=== PATIENT | female | born 1980 | race Caucasian/White ===

== ENCOUNTER 2016-12-17 16:47 | Emergency (ER) | payer OTHER ==
[~2016-12-17] VITALS: Ht 170.2 cm; Wt 76.4 kg
[~2016-12-17 16:47] MED LIST: ABRE10CR TOP; ADDE10XR PO; ADDE20XR PO; ALBU8I INH; ATRO17AE INH; BUSP10 PO; CLIN1KIT TOP; CLON1 PO; DICY1TAB26 PO; HYDR-3533 PO; PRIL40CA PO; REGL10TA5 PO; SERT-129 PO; SPIR50TA21 PO; VIST50CA PO; WELL150T PO; ZOFR4TAB3 SL; [UNRECOGNIZED DRUG - OTHER] TOP
[2016-12-17 16:49] VITALS: BP 140/70; PULSE 48; RESP 20; TEMP 97.6; O2SAT 100
== END 2016-12-17 19:56 | disposition left against medical advice (07) ==
LOC: NED 16:47
DX: T81.9XXA Unspecified complication of procedure, initial encounter (principal)
CPT/HCPCS: 99281

== ENCOUNTER 2017-08-12 14:22 | Emergency (ER) | payer OTHER, MEDICAID ==
[~2017-08-12] VITALS: Ht 170.2 cm; Wt 78.4 kg
[2017-08-12 14:23] VITALS: BP 110/61; PULSE 79; RESP 18; TEMP 98.5; O2SAT 99
[2017-08-12] MEDS ORDERED: KETOROLAC TROMETHAMINE 60 MG/2 ML (IM) VIAL IM ONE (15:45)
[2017-08-12] MEDS ORDERED: ORPHENADRINE INJ 60 MG/2 ML AMP IM ONE (15:45)
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
[2017-08-12] MEDS ORDERED: ROBA500T PO (16:34)
[2017-08-12 16:40] VITALS: RESP 16
== END 2017-08-12 16:57 | disposition home or self-care (01) ==
LOC: NEPK 14:22
DX: S29.012A Strain of muscle and tendon of back wall of thorax, initial encounter (principal); F90.9 Attention-deficit hyperactivity disorder, unspecified type; F31.9 Bipolar disorder, unspecified; J44.9 Chronic obstructive pulmonary disease, unspecified; F42.9 Obsessive-compulsive disorder, unspecified; F43.10 Post-traumatic stress disorder, unspecified; R56.9 Unspecified convulsions; F17.210 Nicotine dependence, cigarettes, uncomplicated; V43.52XA Car driver injured in collision with other type car in traffic accident, initial encounter
CPT/HCPCS: 96372; 99284; J1885; J2360

== ENCOUNTER 2017-08-24 08:18 | Emergency (ER) | payer OTHER, MEDICAID ==
[~2017-08-24] VITALS: Ht 170.2 cm; Wt 75.0 kg
[~2017-08-24 08:18] MED LIST changes: -ABRE10CR TOP; -ADDE10XR PO; -ADDE20XR PO; -ALBU8I INH; -ATRO17AE INH; -BUSP10 PO; -CLIN1KIT TOP; -CLON1 PO; -DICY1TAB26 PO; -HYDR-3533 PO; -PRIL40CA PO; -REGL10TA5 PO; +ROBA500T PO; -SERT-129 PO; -SPIR50TA21 PO; -VIST50CA PO; -WELL150T PO; -ZOFR4TAB3 SL; -[UNRECOGNIZED DRUG - OTHER] TOP
[2017-08-24 08:21] VITALS: BP 152/63; PULSE 76; RESP 18; TEMP 97.7; O2SAT 99
[2017-08-24] MEDS ORDERED: CLON1 PO (08:56)
[2017-08-24] MEDS ORDERED: ZOLO25TA PO (08:56)
[2017-08-24] MEDS ORDERED: ADDE20 PO (08:56)
[2017-08-24] MEDS ORDERED: ONDANSETRON HCL 4 MG/2 ML VIAL IV PUSH ONE (09:15)
[2017-08-24] MEDS ORDERED: KETOROLAC TROMETHAMINE 30 MG/ML (IVP) VIAL IV PUSH ONE (09:15)
[2017-08-24 10:01] LABS: AUTOMATED NEUTROPHIL # 6.6 TH/MM3 (1.8-7.7); BASOPHIL % 0.4 % (0.0-2.0); EOSINOPHIL # 0.3 TH/MM3 (0-0.4); EOSINOPHIL % 3.2 % (0.0-4.0); HEMATOCRIT 42.2 % (35.0-46.0); HEMO FLAGS DIFF FINAL; MEAN CORPUSCULAR HGB CONC 34.4 % (32.0-36.0); MONO % 4.8 % (0.0-8.0); NEUT % 70.6 % (16.0-70.0); PLATELET COUNT 361 TH/MM3 (150-450); RED BLOOD COUNT 4.39 MIL/MM3 (4.00-5.30); RED CELL DISTRIBUTION WIDTH 13.9 % (11.6-17.2); WHITE BLOOD COUNT 9.3 TH/MM3 (4.0-11.0)
[2017-08-24 10:12] LABS: BACTERIA, URINE OCC /hpf; BLOOD, URINE MOD (NEG); COMMENT (UR) CULT NOT INDICATED; CULTURE IF INDICATED CULT NOT INDICATED; GLUCOSE,URINE NEG (NEG); HYALINE CAST, URINE 1 /lpf (RARE); KETONE, URINE NEG (NEG); MUCUS URINE MANY /lpf (OCC); NITRITE,URINE NEG (NEG); SQUAMOUS EPITHELIAL CELL URINE 10 /hpf (0-5); URINE COLOR YELLOW (YELLW/STRAW)
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
[2017-08-24 10:20] LABS: ANION GAP 9 MEQ/L (5-15); AST (GOT) 15 U/L (15-37); BICARBONATE 21.5 MEQ/L (21.0-32.0); BLOOD UREA NITROGEN 18 MG/DL (7-18); CHLORIDE 109 MEQ/L (98-107); GLOMERULAR FILTRATION RATE 73 ML/MIN (>89); POTASSIUM 3.4 MEQ/L (3.5-5.1); SODIUM (NA) 139 MEQ/L (136-145)
[2017-08-24 10:24] LABS: ALKALINE PHOSPHATASE 64 U/L (45-117); ALT (GPT) 29 U/L (10-53); TOTAL BILIRUBIN ADULT 0.6 MG/DL (0.2-1.0)
[2017-08-24 10:30] VITALS: BP 110/64; PULSE 54; RESP 16; O2SAT 99
[2017-08-24] MEDS ORDERED: PANTOPRAZOLE SODIUM 40 MG VIAL IV PUSH ONE (10:45)
[2017-08-24] MEDS ORDERED: SODIUM CHLOR 0.9% 1000 ML INJ 1,000 ML IV ONE (10:45)
[2017-08-24] MEDS ORDERED: TYLE325T PO (11:42)
== END 2017-08-24 13:03 | disposition home or self-care (01) ==
LOC: NEPC 08:18
DX: R10.13 Epigastric pain (principal); F17.210 Nicotine dependence, cigarettes, uncomplicated
CPT/HCPCS: 80053; 81001; 83690; 84703; 85025; 96374; 96375; 99285; C9113; J1885; J2405; J7030

== ENCOUNTER 2018-02-11 15:36 | Emergency (ER) | payer OTHER ==
[~2018-02-11] VITALS: Ht 170.2 cm; Wt 78.8 kg
[~2018-02-11 15:36] MED LIST changes: +ADDE20 PO; +CLON1 PO; +TYLE325T PO; +ZOLO25TA PO
[2018-02-11 15:50] VITALS: BP 109/60; PULSE 73; RESP 16; TEMP 97.9; O2SAT 99
[2018-02-11] MEDS ORDERED: LIPI40TA PO (17:22)
[2018-02-11] MEDS ORDERED: HYDR50CA PO (17:22)
[2018-02-11] MEDS ORDERED: ZOLO100T PO (17:22)
[2018-02-11] MEDS ORDERED: VENTAER INH (17:22)
[2018-02-11] MEDS ORDERED: TOPI100 PO (17:22)
[2018-02-11] MEDS ORDERED: FLUP1TAB PO ×2 (17:22)
[2018-02-11] MEDS ORDERED: OXCA150T PO (17:22)
[2018-02-11] MEDS ORDERED: DOXY1CAP74 PO (17:22)
[2018-02-11] MEDS ORDERED: BUSP10TA PO (17:22)
[2018-02-11] MEDS ORDERED: LEXA5TAB PO (17:22)
--- NOTE | 2018-02-11 18:21 | RADRPT ---
EXAM DATE: 02/11/2018 6:05 PM EDT AGE/SEX: 37 years / Female INDICATIONS: Left elbow pain on posterior side of elbow after falling on ice. CLINICAL DATA: This is the patient's initial encounter. Patient reports that signs and symptoms have been present for 1 day and indicates a pain score of 8/10. MEDICAL/SURGICAL HISTORY: None. None. COMPARISON: No prior [facility] exams available for comparison. FINDINGS: Four views of the left elbow demonstrate no fracture or dislocation. No joint effusion is visualized. No soft tissue abnormality or radiopaque foreign body is present. CONCLUSION: No acute left elbow abnormality is identified. Electronically signed by: Juan Lanier MD 02/11/2018 6:19 PM EDT
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
[2018-02-11] MEDS ORDERED: ACETAMINOPHEN 500 MG CPLT PO ONE (19:00)
[2018-02-11] MEDS ORDERED: TYLE325T PO (19:08)
== END 2018-02-11 19:14 | disposition home or self-care (01) ==
LOC: PHEFT 15:36
DX: S09.90XA Unspecified injury of head, initial encounter (principal); S50.02XA Contusion of left elbow, initial encounter; W01.0XXA Fall on same level from slipping, tripping and stumbling without subsequent striking against object, initial encounter; F31.9 Bipolar disorder, unspecified; F42.9 Obsessive-compulsive disorder, unspecified; F43.10 Post-traumatic stress disorder, unspecified; J44.9 Chronic obstructive pulmonary disease, unspecified; M79.7 Fibromyalgia; F17.210 Nicotine dependence, cigarettes, uncomplicated
CPT/HCPCS: 70450; 73080

== ENCOUNTER 2018-02-24 19:06 | Emergency (ER) | payer OTHER ==
[~2018-02-24] VITALS: Ht 170.2 cm; Wt 77.0 kg
[~2018-02-24 19:06] MED LIST changes: +BUSP10TA PO; +DOXY1CAP74 PO; +FLUP1TAB PO; +HYDR50CA PO; +LEXA5TAB PO; +LIPI40TA PO; +OXCA150T PO; -ROBA500T PO; +TOPI100 PO; +VENTAER INH; +ZOLO100T PO
[2018-02-24 19:10] VITALS: BP 100/56; PULSE 84; RESP 16; TEMP 98.3; O2SAT 99
[2018-02-24] MEDS ORDERED: TRIL150T PO (19:50)
[2018-02-24] MEDS ORDERED: NABU1TAB37 PO (19:50)
[2018-02-24] MEDS ORDERED: BUPR150CR PO (19:50)
[2018-02-24] MEDS ORDERED: ELUX1TAB PO (19:50)
[2018-02-24] MEDS ORDERED: KETO10 PO (19:59)
--- NOTE | 2018-02-24 19:59 | PD ---
HPI Chief Complaint: Oral / Dental Pain or Problem Time Seen by Provider: 19:55 Travel History International Travel<30 days: No Contact w/Intl Traveler<30days: No Traveled to known affect area: No History of Present Illness HPI 37-year-old with dental pain 2 days. She reports she has a crown that dislodged from her tooth and she now has pain. She reports her dentist put her on antibiotics several days ago for this she has continued pain. She is requesting pain medication. She denies fever chills. No difficulty swallowing. No swelling to the floor the mouth. She reports compliance with antibiotics. PFSH Past Medical History Hx Anticoagulant Therapy: No ADD: Yes ADHD: Yes Bipolar Disorder: Yes Anxiety: Yes Depression: Yes Cancer: No Cardiovascular Problems: No COPD: Yes Cerebrovascular Accident: No Diabetes: No Diminished Hearing: No Endocrine: No Fibromyalgia: Yes Gastrointestinal Disorders: No Genitourinary: No Hepatitis: No Hiatal Hernia: No Hypertension: No Immune Disorder: No Implanted Vascular Access Dvce: Yes Musculoskeletal: Yes Neurologic: No Psychiatric: Yes (OCD, PTSD (DRUG DEALING/LOST CHILDREN), social anxiety disorder, panic att.) Reproductive: No Respiratory: Yes (copd, sleep apena) Immunizations Current: Yes Seizures: Yes Thyroid Disease: No PNEUMOCCOCAL Vaccine (Year): 2 ?: Not : 3 Para: 3 Tubal Ligation: Yes Past Surgical History Body Medical Devices: HARDWARE LEFT LEG Ear Surgery: No Gynecologic Surgery: Yes (TUBAL \LIG.) Neurologic Surgery: Yes (LUMBAR SX) Oral Surgery: Yes (WISDOM TEETH EXTRACTED, T & A) Pacemaker: No Thoracic Surgery: Yes (BREAST AUG.) Tonsillectomy: Yes Other Surgery: Yes (BREAST AUGMENTATION) Social History Alcohol Use: No Tobacco Use: Yes (vape) Substance Use: No Allergies-Medications (Allergen,Severity, Reaction): Coded Allergies: codeine (Unverified Allergy, Severe, 02/24/18) gabapentin (Unverified Allergy, Unknown, 02/24/18) haloperidol (Unverified Allergy, Unknown, 02/24/18) promethazine (Unverified Allergy, Unknown, 02/24/18) Uncoded Allergies: IV DYE (Allergy, Severe, 02/11/18) . Reported Meds & Prescriptions Reported Meds & Active Scripts Active Reported Viberzi (Eluxadoline) 75 Mg Tab 75 Mg PO BID Trileptal (Oxcarbazepine) 150 Mg Tab 150 Mg PO DAILY Nabumetone 500 Mg Tab 500 Mg PO BID Wellbutrin SR 12 HR (Bupropion HCl) 150 Mg Tab 150 Mg PO Q12HR Ventolin Hfa 18 GM Inh (Albuterol Sulfate) 90 Mcg/Act Aer 1 Puff INH Q4H PRN Lexapro (Escitalopram Oxalate) 5 Mg Tab 5 Mg PO DAILY Buspirone (Buspirone HCl) 10 Mg Tab 10 Mg PO BID Lipitor (Atorvastatin Calcium) 40 Mg Tab 40 Mg PO DAILY Topamax (Topiramate) 100 Mg Tab 100 Mg PO BID Klonopin (Clonazepam) 1 Mg Tab 1 Mg PO TID Adderall (Amphetamine-Dextroamphetamine) 20 Mg Tab 20 Mg PO BID Avoid late evening doses. Space doses at least 4 to 6 hours if more than once/day dosing. Review of Systems Except as stated in HPI: all other systems reviewed are Neg General / Constitutional: No: Fever Eyes: No: Visual changes HENT: Positive: Dental Difficulties Physical Exam Narrative GENERAL: Alert and well-appearing 37-year-old female SKIN: Warm and dry. HEAD: Normocephalic. EYES: No injection or drainage. MOUTH: Widespread dental decay. Patient points to the left upper molars as the site of the pain. No discernible infection or abscess. No swelling to the floor the mouth. Uvula is midline. Airways patent. NECK: Supple, trachea midline. No lymphadenopathy. CARDIOVASCULAR: Regular rate and rhythm RESPIRATORY: Breath sounds equal bilaterally. No accessory muscle use. GASTROINTESTINAL: Abdomen soft, non-tender, nondistended. Data Data Last Documented VS Vital Signs Date Time Temp Pulse Resp B/P (MAP) Pulse Ox O2 Delivery O2 Flow Rate FiO2 02/24/18 19:10 98.3 84 16 100/56 (71) 99 Orders Orders Ketorolac Inj (Toradol Inj) (02/24/18 20:00) [facility] Medical Decision Making Medical Screen Exam Complete: Yes Emergency Medical Condition: Yes Differential Diagnosis Dental pain, dental fracture, periodontal disease Narrative Course 37-year-old female here with dental pain. She is currently on amoxicillin. She is requesting to look for pain. She is nontoxic appearing. She was given a shot of Toradol. 2100 was notified by the charge nurse the patient return to the ED requesting a prescription changed because her insurance would not cover the ketorolac. Prescription was changed to Naprosyn. Diagnosis Primary Impression: Pain, dental Referrals: Dentist Additional Instructions: Medication as directed. Follow-up with your dentist Scripts Naproxen (Naprosyn) 500 Mg Tab 500 MG PO BID, #14 TAB 0 Refills Prov: Aide Edge 02/24/18 Disposition: 01 DISCHARGE HOME Condition: Stable Aide Edge Feb 24, 2018 19:59
[2018-02-24] MEDS ORDERED: KETOROLAC TROMETHAMINE 60 MG/2 ML (IM) VIAL IM ONE (20:00)
[2018-02-24] MEDS ORDERED: NAPR500 PO (21:00)
== END 2018-02-24 20:14 | disposition home or self-care (01) ==
LOC: PHEFT 19:06
DX: K08.89 Other specified disorders of teeth and supporting structures (principal); F17.290 Nicotine dependence, other tobacco product, uncomplicated; F90.9 Attention-deficit hyperactivity disorder, unspecified type; F31.9 Bipolar disorder, unspecified; J44.9 Chronic obstructive pulmonary disease, unspecified; M79.7 Fibromyalgia; F42.9 Obsessive-compulsive disorder, unspecified; F43.10 Post-traumatic stress disorder, unspecified; F41.9 Anxiety disorder, unspecified; G47.30 Sleep apnea, unspecified; Z86.69 Personal history of other diseases of the nervous system and sense organs; Z79.51 Long term (current) use of inhaled steroids; Z79.899 Other long term (current) drug therapy; Z88.5 Allergy status to narcotic agent; Z88.8 Allergy status to other drugs, medicaments and biological substances
CPT/HCPCS: 96372; 99283; J1885